=== PATIENT | male | born 1995 | race Caucasian/White ===

== ENCOUNTER 2017-02-25 20:43 | Emergency (ER) | payer MEDICARE | END 2017-02-25 21:24 | disposition home or self-care (01) | LOC: ER 20:43 | DX: S66.911A Strain of unspecified muscle, fascia and tendon at wrist and hand level, right hand, initial encounter (principal); J45.909 Unspecified asthma, uncomplicated; X50.0XXA Overexertion from strenuous movement or load, initial encounter; Y92.009 Unspecified place in unspecified non-institutional (private) residence as the place of occurrence of the external cause ==

== ENCOUNTER 2017-03-10 01:33 | Emergency (ER) | payer MEDICARE | END 2017-03-10 02:31 | disposition home or self-care (01) | LOC: ER 01:33 | DX: M79.674 Pain in right toe(s) (principal); J45.909 Unspecified asthma, uncomplicated ==